=== PATIENT | male | born 1995 | race African-American/Black ===

== ENCOUNTER 2022-11-10 16:04 | Inpatient (IN) | payer MEDICAID ==
[~2022-11-10] VITALS: Ht 182.9 cm; Wt 68.0 kg
[2022-11-10] MEDS ORDERED: ONDANSETRON HCL 4MG/2ML INJ IV STA ×2 (20:03→21:40)
[2022-11-10] MEDS ORDERED: KETOROLAC 30MG/ML VIAL IV STA (20:03)
[2022-11-10] MEDS ORDERED: SODIUM CHLORIDE 0.9% 1,000 ML IV ONE ×2 (20:15→21:45)
[2022-11-10 21:01] LABS: CLARITY URINE TURBID (CLEAR); COLOR URINE YELLOW (YELLOW); KETONES URINE TRACE (NEGATIVE); LEUKOCYTE ESTERASE URINE NEGATIVE (NEGATIVE); NITRITE URINE NEGATIVE (NEGATIVE); OCCULT BLOOD URINE NEGATIVE (NEGATIVE); PH URINE 5.5 (4.5-8.0); PROTEIN URINE 1+ (NEGATIVE)
[2022-11-10 21:07] LABS: BASOPHILS % 0.4 % (0.0-2.0); HEMATOCRIT. 26.9 % (42.0-52.0); HEMOGLOBIN. 8.3 g/dL (14.0-18.0); LYMPHOCYTES % 10.3 % (20.0-50.0); MEAN CORPUSCULAR HEMOGLOBIN 23.4 pg (28.0-32.0); MEAN CORPUSCULAR VOLUME 75.6 fL (80.0-94.0); MEAN PLATELET VOLUME 7.6 fl (7.4-10.4); MONOCYTES % 5.4 % (2.0-8.0); NEUTROPHILS % 80.9 % (40.0-76.0); PLATELET 628 x1000/uL (130-400); RED BLOOD CELL COUNT 3.56 mill/uL (4.7-6.1); RED CELL DISTRIBUTION WIDTH 20.9 % (11.6-14.6)
[2022-11-10 21:10] LABS: CHLORIDE 107 mEq/L (98-107)
[2022-11-10 21:19] LABS: ETHANOL BLOOD < 10 mg/dL
[2022-11-10 21:22] LABS: *AMPHETAMINES SCREEN URINE PRESUMTIVE POSITIVE (NEGATIVE); *BARBITURATES SCREEN URINE NEGATIVE (NEGATIVE); *BENZODIAZEPINES SCREEN URINE NEGATIVE (NEGATIVE); *COCAINE SCREEN URINE NEGATIVE (NEGATIVE); CANNABINOID URINE SCREEN PRESUMTIVE POSITIVE (NEGATIVE); METHADONE URINE SCREEN NEGATIVE (NEGATIVE); OPIATES URINE SCREEN NEGATIVE (NEGATIVE); PHENCYCLIDINE URINE SCREEN NEGATIVE (NEGATIVE)
[2022-11-10] MEDS ORDERED: MORPHINE SULFATE 4 MG/ML CPJ (NOT FOR IM USE) IV STA (21:40)
[2022-11-11] MEDS: AMPICILLIN SOD/SULBACTAM NA 3 G in SODIUM CHLORIDE 0.9% 100 ML IV SCH ×4 (00:15→18:46)
[2022-11-11] MEDS ORDERED: ONDANSETRON HCL 4MG/2ML INJ IV NR (02:15)
[2022-11-11] MEDS ORDERED: MORPHINE SULFATE 4 MG/ML CPJ (NOT FOR IM USE) IV NR (02:15)
[2022-11-11] MEDS ORDERED: HYDROCODONE/ACETAMINOPHEN 10/325MG TABLET PO NR (10:28)
[2022-11-11] MEDS ORDERED: ACETAMINOPHEN 325MG TABLET PO PRN (11:30)
[2022-11-11] MEDS ORDERED: ONDANSETRON HCL 4MG/2ML INJ IV PRN (11:30)
[2022-11-11] MEDS: DEXT 5%/0.45% NACL 1000ML 1,000 ML IV SCH (11:30)
[2022-11-11] MEDS: KETOROLAC 30MG/ML VIAL IV PRN ×2 (15:51→22:14)
[2022-11-11 16:35] LABS: TOTAL IRON BINDING CAPACITY 358 ug/dL (250-450)
[2022-11-12] MEDS: AMPICILLIN SOD/SULBACTAM NA 3 G in SODIUM CHLORIDE 0.9% 100 ML IV SCH ×2 (01:23→06:50)
[2022-11-12] MEDS: DEXT 5%/0.45% NACL 1000ML 1,000 ML IV SCH (02:33)
[2022-11-12 06:50] VITALS: BP 128/79
[2022-11-12] MEDS: KETOROLAC 30MG/ML VIAL IV PRN (06:50)
== END 2022-11-12 08:25 | disposition left against medical advice (07) | DRG 720 ==
LOC: ER 16:04 → MICUSO 22:27
PROVIDERS: ADMIT Internal Medicine; ATTEND Internal Medicine
DX: A41.9 Sepsis, unspecified organism (principal); K85.90 Acute pancreatitis without necrosis or infection, unspecified; E44.1 Mild protein-calorie malnutrition; D64.9 Anemia, unspecified; K52.9 Noninfective gastroenteritis and colitis, unspecified; F15.90 Other stimulant use, unspecified, uncomplicated; F17.210 Nicotine dependence, cigarettes, uncomplicated; Z53.29 Procedure and treatment not carried out because of patient's decision for other reasons
CPT/HCPCS: 36415; 74176; 76705; 80053; 80305; 80320; 81003; 82728; 83540; 83550; 85025; 99285; J0295; J1885; J2270; J2405; J7030; J7050; G0480